=== PATIENT | male | born 1980 | race Caucasian/White ===

== ENCOUNTER 2016-11-03 15:16 | Emergency (ER) | payer OTHER ==
[~2016-11-03] VITALS: Ht 170.2 cm; Wt 63.6 kg
[~2016-11-03 15:16] MED LIST: KEFLEX500 MG PO; MOTRIN800 MG PO; TEGRETOL100 MG PO
[2016-11-03 16:23] LABS: EOSINOPHIL (%) 2.4 % (0-5); EOSINOPHIL COUNT 0.3 K/uL (0-0.3); IMMATURE GRANULOCYTE (%) 0.7 % (0.0-0.7); IMMATURE GRANULOCYTE COUNT 0.1 K/uL; INSTRUMENT ABS NEUTROPHIL CT 8.6 K/uL; LYMPHOCYTE COUNT 1.5 K/uL (1.0-2.8); MCH 29.6 PG (29.0-34.0); MCHC 35.4 G/DL (30.0-36.0); MCV 83.7 FL (86-99); MONOCYTE (%) 9.9 % (3-12); MONOCYTE COUNT 1.2 K/uL (0-0.8); NEUTROPHIL (%) 73.7 % (45-76); NEUTROPHIL COUNT 8.6 K/uL (1.8-6.4); PLATELET COUNT 252 K/uL (156-360); RBC DIS.WIDTH-CV 12.5 % (11.8-14.6); RBC DIS.WIDTH-SD 37.8 % (39-53); RED BLOOD COUNT 4.66 M/uL (4.00-5.50); WHITE BLOOD COUNT 11.7 K/uL (4.1-10.2)
[2016-11-03 16:24] LABS: CHLORIDE 101 mEq/L (99-109); POTASSIUM 3.6 mEq/L (3.7-5.4); SODIUM 139 mEq/L (136-147)
[2016-11-03 16:26] LABS: GLUCOSE 92 mg/dL (70-99)
[2016-11-03 16:27] LABS: ANION GAP 9 MEQ/L (2-14)
[2016-11-03 16:30] LABS: GFR ESTIMATE (CALCULATED) > 59 mL/min/
[2016-11-03 16:31] LABS: UREA NITROGEN (BUN) 9 mg/dL (9-23)
[2016-11-03 19:58] LABS: ADD MIUA? NO; BILIRUBIN NEGATIVE; BLOOD NEGATIVE; COLOR YELLOW ((YELLOW)); GLUCOSE (STRIP) NEGATIVE; KETONES NEGATIVE; LEUKOCYTES NEGATIVE; NITRITE NEGATIVE; PROTEIN (STRIP) NEGATIVE; UCUL ADDED? NO; UROBILINOGEN 0.2 MG/DL (0.2-1.0)
[2016-11-03] MEDS ORDERED: KEFLEX500 MG PO (20:02)
[2016-11-03] MEDS ORDERED: BACTRIM,SEPT1 TABLET PO (20:02)
[2016-11-03 20:10] LABS: AMPHETAMINE NEGATIVE (500 ng/mL); BARBITURATES NEGATIVE (200 ng/mL); BENZODIAZEPINES NEGATIVE (150 ng/mL); COCAINE PRESUMPTIVE POSITIVE (150 ng/mL); INTERNAL CONTROLS VALID? YES; METHADONE NEGATIVE (200 ng/mL); METHAMPHETAMINE NEGATIVE (500 ng/mL); OPIATES (MORPHINE) PRESUMPTIVE POSITIVE (100 ng/mL); OXYCODONE NEGATIVE (100 ng/mL); PHENCYCLIDINE NEGATIVE (25 ng/mL); PROPOXYPHENE NEGATIVE (300 ng/mL); THC CANNABINOIDS NEGATIVE (50 ng/mL); TRICYCLIC ANTIDEPRESSANTS NEGATIVE (300 ng/mL)
[2016-11-03 20:11] LABS: ADD MEDTOX COMMENT Y
[2016-11-03 20:48] VITALS: BP 124/67
== END 2016-11-03 21:17 | disposition home or self-care (01) ==
LOC: EME 15:16
PROVIDERS: Emergency Medicine; Nurse Practitioner Family
DX: L03.116 Cellulitis of left lower limb (principal); F14.10 Cocaine abuse, uncomplicated; F11.10 Opioid abuse, uncomplicated; F17.200 Nicotine dependence, unspecified, uncomplicated
CPT/HCPCS: 73590; 73630; 80048; 81003; 83605; 84999; 85025; 87040; 99281; 99285; J0295; J3010; J3370; J7030; J7050

== ENCOUNTER 2017-01-28 04:48 | Inpatient (IN) | payer OTHER ==
[~2017-01-28] VITALS: Ht 175.3 cm; Wt 63.0 kg
[2017-01-28] VITALS (7 sets, daily range): BP systolic 117–129; BP diastolic 76–85
[~2017-01-28 04:48] MED LIST changes: +BACTRIM,SEPT1 TABLET PO
[2017-01-28 05:41] LABS: HEMATOCRIT 45.2 % (38.0-50.0); MCH 29.7 PG (29.0-34.0); MCHC 35.8 G/DL (30.0-36.0); MCV 82.9 FL (86-99); MEAN PLAT.VOLUME 8.8 uM^3 (9.0-12.4); PLATELET COUNT 192 K/uL (156-360); RBC DIS.WIDTH-SD 38.6 % (39-53); RED BLOOD COUNT 5.45 M/uL (4.00-5.50); WHITE BLOOD COUNT 11.6 K/uL (4.1-10.2)
[2017-01-28 05:47] LABS: CHLORIDE 98 mEq/L (99-109); SODIUM 140 mEq/L (136-147)
[2017-01-28 05:49] LABS: GLUCOSE 99 mg/dL (70-99)
[2017-01-28 05:50] LABS: ANION GAP 15 MEQ/L (2-14)
[2017-01-28 05:51] LABS: TOTAL BILIRUBIN 0.9 mg/dL (0.0-1.0)
[2017-01-28 05:52] LABS: ALKALINE PHOSPHATASE 103 IU/L (3-129)
[2017-01-28 05:53] LABS: GFR ESTIMATE (CALCULATED) > 59 mL/min/
[2017-01-28 05:54] LABS: DIRECT BILIRUBIN 0.4 mg/dL (0.0-0.3); UREA NITROGEN (BUN) 14 mg/dL (9-23)
[2017-01-28 05:56] LABS: LIPASE 17 U/L (1.0-51.0)
[2017-01-28 10:11] LABS: HEMATOCRIT 37.4 % (38.0-50.0); MCV 82.4 FL (86-99)
[2017-01-28 10:20] LABS: METH RESISTANT S AUREUS PCR NEGATIVE (NEGATIVE)
[2017-01-28 10:21] LABS: PROBE CHECK PASS; SPECIMEN PROCESSING CONTROL PASS
[2017-01-28] MEDS ORDERED: BUPRENORPHIN-N1 EACH SL (13:39)
[2017-01-28] MEDS ORDERED: BUPRENORPHINE HC8 MG SL (13:41)
[2017-01-29 08:00] VITALS: BP 120/69
[2017-01-29 12:00] VITALS: BP 125/76
[2017-01-29 16:00] VITALS: BP 119/82
[2017-01-29 19:50] VITALS: BP 133/86
[2017-01-29 23:52] VITALS: BP 132/76
[2017-01-30 04:01] VITALS: BP 131/66
[2017-01-30 06:21] LABS: MCH 29.4 PG (29.0-34.0); MCHC 35.4 G/DL (30.0-36.0); MCV 83.2 FL (86-99); PLATELET COUNT 172 K/uL (156-360); RBC DIS.WIDTH-CV 13.1 % (11.8-14.6); RBC DIS.WIDTH-SD 39.8 % (39-53); RED BLOOD COUNT 4.69 M/uL (4.00-5.50); WHITE BLOOD COUNT 11.2 K/uL (4.1-10.2)
[2017-01-30 06:50] LABS: ALKALINE PHOSPHATASE 60 IU/L (3-129); ANION GAP 8 MEQ/L (2-14); CHLORIDE 101 MEQ/L (99-109); GFR ESTIMATE (CALCULATED) > 59 mL/min/; GLUCOSE 110 mg/dL (70-99); POTASSIUM 3.6 MEQ/L (3.7-5.4); SAMPLE HEMOLYSIS CHECK 0; SAMPLE ICTERIC CHECK 0; SAMPLE LIPEMIA CHECK 0; SODIUM 137 MEQ/L (136-147); TOTAL BILIRUBIN 1.2 MG/DL (0.0-1.0); UREA NITROGEN (BUN) 5 mg/dL (9-23)
[2017-01-30 08:17] VITALS: BP 128/79
[2017-01-30 15:37] VITALS: BP 127/81
[2017-01-30 19:24] VITALS: BP 128/74
[2017-01-30 23:07] VITALS: BP 121/65
[2017-01-31 03:48] VITALS: BP 111/73
[2017-01-31 08:13] VITALS: BP 113/69
[2017-01-31 13:27] VITALS: BP 116/68
[2017-01-31 16:27] VITALS: BP 126/78
[2017-01-31 19:46] VITALS: BP 116/69
[2017-01-31 23:51] VITALS: BP 117/75
[2017-02-01 04:00] VITALS: BP 112/68
[2017-02-01 04:10] VITALS: BP 110/63
[2017-02-01 08:14] VITALS: BP 119/62
[2017-02-01 11:03] VITALS: BP 124/73
[2017-02-01] MEDS ORDERED: HYDROMORPHONE HC4 MG PO (15:29)
[2017-02-01 15:39] VITALS: BP 95/50
[2017-02-01 15:58] VITALS: BP 95/50
== END 2017-02-01 20:40 | disposition home or self-care (01) | DRG 200 ==
LOC: EME 04:48 → TRA 04:48 → 4WEST 06:14 → EDOF 06:14 → ENRESERV 06:16 → 4WEST 08:13 → CANRESERV 01-29 16:13 → ENRESERV 01-29 16:13 → CANRESERV 01-29 17:05 → ENRESERV 01-29 17:05 → 3EAST 01-29 19:19
PROVIDERS: Emergency Medicine; Surgery
PROC: 0W9930Z Drainage of Right Pleural Cavity with Drainage Device, Percutaneous Approach (ICD-10-PCS; principal; 2017-01-28)
PROC: 0WP8X0Z Removal of Drainage Device from Chest Wall, External Approach (ICD-10-PCS; 2017-02-01)
DX: S27.0XXA Traumatic pneumothorax, initial encounter (principal); F11.20 Opioid dependence, uncomplicated; S27.329A Contusion of lung, unspecified, initial encounter; S22.41XA Multiple fractures of ribs, right side, initial encounter for closed fracture; R09.02 Hypoxemia; F31.9 Bipolar disorder, unspecified; F19.20 Other psychoactive substance dependence, uncomplicated; S20.229A Contusion of unspecified back wall of thorax, initial encounter; S00.83XA Contusion of other part of head, initial encounter; S61.019A Laceration without foreign body of unspecified thumb without damage to nail, initial encounter; Y09 Assault by unspecified means; F17.200 Nicotine dependence, unspecified, uncomplicated; F90.9 Attention-deficit hyperactivity disorder, unspecified type; Z79.899 Other long term (current) drug therapy
CPT/HCPCS: 70450; 70486; 71010; 71250; 72125; 72128; 72131; 74176; 74177; 80048; 80053; 80076; 83690; 85014; 85018; 85027; 87641; 94799; 99281; 99285; C1753; J1170; J1885; J2250; J2270; J7120